=== PATIENT | female | born 2000 | race Caucasian/White ===

== ENCOUNTER → 2020-07-12 | Outpatient (CLI) | payer OTHER ==
[2020-07-12 11:18] LABS: microscopic required? NO
[2020-07-12 11:48] LABS: UA SPECIFIC GRAVITY >=1.030 (1.005-1.035); urine erythrocyte NEGATIVE (NEGATIVE)
[2020-07-12 11:49] LABS: ALBUMIN 4.3 g/dL (3.4-5.0); ALKALINE PHOSPHATASE 73 U/L (46-116); ALT/SGPT 18 U/L (14-59); AST/SGOT 15 U/L (15-37); BILIRUBIN TOTAL 0.3 mg/dL (0.20-1.00); CALCIUM 9.3 mg/dL (8.5-10.1); CARBON DIOXIDE 25.4 mmol/L (21-32); CHLORIDE SERUM 103 mmol/L (98-107); CHOLESTEROL 198 mg/dL (<200); CHOLESTEROL/HDL RATIO 4.2; CREATININE SERUM 0.9 mg/dL (0.6-1.0); GFR1 > 60 mL/min; GLUCOSE SERUM 97 mg/dL (74-106); HDL CHOLESTEROL 47 mg/dL (40-60); SODIUM SERUM 137 mmol/L (136-145); TRIGLYCERIDES 74 mg/dL (<150)
[2020-07-12 11:53] LABS: BASOPHIL % 0.8 % (0-2); PLATELET COUNT 374 x10^3mcL (130-400)
[2020-07-12 11:58] LABS: RED CELL DISTRIBUTION WIDTH 17.1 % (11.5-14.5)
[2020-07-12 12:08] LABS: TOTAL PROTEIN, SERUM 8.4 g/dL (6.4-8.2)
== END | disposition home or self-care (01) ==
LOC: RD 10:35
DX: Z00.00 Encounter for general adult medical examination without abnormal findings (principal); M25.531 Pain in right wrist

== ENCOUNTER → 2020-07-27 | Outpatient (CLI) | payer OTHER ==
[2020-07-27 15:03] LABS: TOTAL IRON BINDING CAPACITY 412 ug/dL (250-450)
[2020-07-27 15:04] LABS: IRON 15 ug/dL (50-170)
== END | disposition home or self-care (01) ==
LOC: LB 13:45
DX: D50.9 Iron deficiency anemia, unspecified (principal)

== ENCOUNTER → 2020-11-17 | Outpatient (CLI) | payer OTHER ==
[2020-11-17 10:08] LABS: microscopic required? NO
[2020-11-17 10:23] LABS: PLATELET COUNT 319 x10^3mcL (179-408); RED CELL DISTRIBUTION WIDTH 13.2 % (12.3-17.7)
[2020-11-17 10:35] LABS: UA SPECIFIC GRAVITY >=1.030 (1.005-1.035); urine erythrocyte NEGATIVE (NEGATIVE)
[2020-11-17 10:46] LABS: ALBUMIN 4.2 g/dL (3.4-5.0); ALKALINE PHOSPHATASE 68 U/L (46-116); ALT/SGPT 23 U/L (14-59); AST/SGOT 16 U/L (15-37); BILIRUBIN TOTAL 0.3 mg/dL (0.20-1.00); CALCIUM 9.8 mg/dL (8.5-10.1); CARBON DIOXIDE 24.6 mmol/L (21-32); CHLORIDE SERUM 101 mmol/L (98-107); CHOLESTEROL 196 mg/dL (<200); CHOLESTEROL/HDL RATIO 4.6; CREATININE SERUM 0.7 mg/dL (0.6-1.0); GFR1 > 60 mL/min; GLUCOSE SERUM 102 mg/dL (74-106); HDL CHOLESTEROL 43 mg/dL (40-60); POTASSIUM SERUM 4.1 mmol/L (3.5-5.1); SODIUM SERUM 139 mmol/L (136-145)
[2020-11-17 10:52] LABS: IRON 73 ug/dL (50-170); TOTAL IRON BINDING CAPACITY 359 ug/dL (250-450)
[2020-11-17 10:55] LABS: TRIGLYCERIDES 237 mg/dL (<150)
== END | disposition home or self-care (01) ==
LOC: LB 09:49
DX: Z00.01 Encounter for general adult medical examination with abnormal findings (principal); D53.9 Nutritional anemia, unspecified; E78.5 Hyperlipidemia, unspecified; D50.9 Iron deficiency anemia, unspecified
CPT/HCPCS: 86480